=== PATIENT | male | born 1960 ===

== ENCOUNTER → 2024-07-28 | Outpatient (CLI) | payer BC ==
--- NOTE | 2024-07-29 16:50 | US ---
EXAMINATION TYPE: US abdomen complete DATE OF EXAM: 07/28/2024 COMPARISON: NONE CLINICAL INDICATION: Male, 64 years old with history of R10.30 LOW ABD PAIN; TECHNIQUE: Grayscale and color Doppler imaging of the abdomen was performed. FINDINGS: EXAM MEASUREMENTS: Liver Length: 15.0 cm Gallbladder Wall: 0.2 cm CBD: 0.5 cm Spleen: n/a Right Kidney: 9.5 x 4.6 x 3.7 cm Left Kidney: 9.2 x 4.8 x 4.4 cm Pancreas: visualized portions wnl, limited by overlying midline bowel gas Liver: wnl Gallbladder: wnl Evidence for sonographic Krueger's sign: no CBD: visualized portions wnl, limited by overlying bowel gas Spleen: not seen due to overlying bowel gas Right Kidney: wnl Left Kidney: wnl Upper IVC: wnl Abd Aorta: wnl IMPRESSION: 1. Unremarkable right upper quadrant ultrasound [facility] Ash Medley, Workstation: 3, 07/29/2024 4:48 PM
== END | disposition home or self-care (01) ==
LOC: RADUSWWP 07:10
PROVIDERS: ATTEND Family Medicine
DX: R35.0 Frequency of micturition (principal); R10.30 Lower abdominal pain, unspecified
CPT/HCPCS: 76700